=== PATIENT | female | born 2005 | race Hispanic/Latino ===

== ENCOUNTER 2025-05-28 18:08 | Emergency (ER) | payer OTHER, SELFPAY ==
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
[2025-05-28 18:49] VITALS: BP 128/76; PULSE 88; RESP 16; TEMP 36.9; O2SAT 100
[2025-05-28] MEDS: KETOROLAC (*BKC) 60 MG/2 ML VIAL IM (20:39)
--- NOTE | 2025-05-28 20:42 | PC.NURSE ---
Pt. to CT.
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
[2025-05-28 21:09] LABS: BEDSIDEPREGUCG Negative (Negative)
[2025-05-28 22:13] VITALS: BP 111/86; PULSE 82; RESP 16; TEMP 36.6; O2SAT 100
== END 2025-05-28 22:17 | disposition home or self-care (01) ==
PROVIDERS: Emergency Provider Emergency Medicine
DX: S13.4XXA Sprain of ligaments of cervical spine, initial encounter (principal); S46.812A Strain of other muscles, fascia and tendons at shoulder and upper arm level, left arm, initial encounter; V49.50XA Passenger injured in collision with unspecified motor vehicles in traffic accident, initial encounter
CPT/HCPCS: 72125; 73030; 81025; 96372; 99284; J1885